=== PATIENT | female | born 1935 | race Caucasian/White ===

== ENCOUNTER 2019-04-28 20:56 | Emergency (ER) | payer MEDICARE ==
[~2019-04-28] VITALS: Ht 175.3 cm; Wt 79.4 kg
[~2019-04-28 20:56] MED LIST: ACTOPLUS MET 11 EACH PO; CRESTOR10 MG PO; EVISTA60 MG PO; HYDROCHLOROTHIA25 MG PO; RAMIPRIL10 MG PO; XALATAN2.5 ML OP
--- NOTE | 2019-04-28 22:46 | Diagnostic Imaging Report ---
Shoulder 2 views CPT code: 32783 Indication: Fall, right arm pain Comparison: None. Findings: 2 views of the right shoulder were obtained. Chronic appearing fracture deformity of the glenohumeral joint with superimposed severe degenerative changes. No dislocation. The acromion and clavicle are intact and normally aligned. Visualized portions of the scapular body are intact. The visualized portion of the right lung is diffusely hyperinflated. There is a calcific subcentimeter granuloma in the upper lobe. Visualized ribs are intact. IMPRESSION: Chronic appearing fracture deformity of the right shoulder with superimposed degenerative changes. No dislocation. Signed by: Dr. Meek Fam MD on 04/28/2019 10:43 PM
--- NOTE | 2019-04-28 22:59 | Diagnostic Imaging Report ---
EXAMINATION: Head CT without contrast. HISTORY:Fall. COMPARISON:CT brain from 09/21/2012. TECHNIQUE: Multidetector axial images were obtained from the foramen magnum to the vertex without contrast. The images were reconstructed using brain and bone algorithms. Thin section brain images were reformatted into coronal and sagittal planes. Dose modulation, iterative reconstruction, and/or weight based adjustment of the mA/kV was utilized to reduce the radiation dose to as low as reasonably achievable. Intravenous contrast: None IMAGE QUALITY: Acceptable. FINDINGS: Skull/scalp: Moderate right frontal temporal scalp soft tissue edema/hematoma with mild superficial subcutaneous soft tissue emphysema. No radiopaque foreign body. No acute depressed or displaced calvarial fracture. Parenchyma: Nonspecific bilateral frontoparietal confluent and patchy periventricular, subcortical and deep white matter hypodensity are likely related to small vessel ischemic changes. No acute hemorrhage, mass or acute major vascular territorial infarct. Arteries: No density suggestive of thrombosis. Dural sinuses: No abnormal density suggestive of thrombosis. Ventricles: No hydrocephalus or displacement. Extra-axial spaces: No abnormal density. Brain volume: Generalized age-related cerebral volume loss. Craniocervical junction: No mass, Chiari malformation, or basilar invagination. Sella: No mass. Paranasal/mastoid sinuses: Moderate mucosal thickening without fluid level in left sphenoid sinus. IMPRESSION: 1. Moderate right fronto-temporal scalp edema/hematoma and focal laceration. No acute fracture. 2. No acute posttraumatic intracranial abnormality. 3. Moderate supratentorial white matter microvascular ischemic changes. 4. Generalized age-related cerebral volume loss. Signed by: Dr. Rosie Arambula M.D. on 04/28/2019 10:55 PM
[2019-04-28] MEDS ORDERED: LIDOCAINE 5% PATCH TP SCH (23:30)
[2019-04-28] MEDS ORDERED: LIDOPATCH1 EACH TOP (23:34)
== END 2019-04-28 23:45 | disposition home or self-care (01) ==
LOC: ER 20:56
DX: S06.0X0A Concussion without loss of consciousness, initial encounter (principal); S00.83XA Contusion of other part of head, initial encounter; W18.30XA Fall on same level, unspecified, initial encounter; Y92.488 Other paved roadways as the place of occurrence of the external cause; I10 Essential (primary) hypertension; E11.9 Type 2 diabetes mellitus without complications; E78.5 Hyperlipidemia, unspecified; F32.9 Major depressive disorder, single episode, unspecified; Z85.828 Personal history of other malignant neoplasm of skin
CPT/HCPCS: 70450; 99284